=== PATIENT | male | born 1975 ===

== ENCOUNTER 2017-08-07 10:06 | Emergency (ER) | payer OTHER ==
[2017-08-07 10:24] VITALS: BP 112/74
--- NOTE | 2017-08-07 10:54 | UC ---
Respiratory Complaint HPI - HPI Summary HPI Summary: 42 Y/O male with C/O upper respiratory congestion, cough and R sided chest wall pain. States symptoms began two days ago. Denies fever, chills, dyspnea, nausea , vomiting, or diaphoresis. States pain in R lower chest improves with massage. No cardiac or respiratory medical history. medical history and medications reviewed at this visit. Discussed testing (EKG, CXR to rule out cardiac origin or pulmonary disease) Mr Richardson defers further testing at this time. Risk vs benefits discussed. - History of Current Complaint Chief Complaint: UCRespiratory Stated Complaint: URI Time Seen by Provider: 08/07/17 10:33 Hx Obtained From: Patient Onset/Duration: Gradual Onset Timing: Constant Severity Initially: Mild Severity Currently: Mild Pain Intensity: 4 Pain Scale Used: 0-10 Numeric Character: Cough: Productive Associated Signs And Symptoms: Positive: URI, Nasal Congestion - Risk Factors Pulmonary Embolism Risk Factors: Negative Cardiac Risk Factors: Negative Pseudomonas Risk Factors: Negative Tuberculosis Risk Factors: Negative - Allergies/Home Medications Allergies/Adverse Reactions: Allergies Allergy/AdvReac Type Severity Reaction Status Date / Time No Known Allergies Allergy Verified 08/07/17 10:24 Home Medications: Home Medications Pseudoephedrine HCl [Sudafed 12 Hour] 120 mg PO 08/07/17 [History] PMH/Surg Hx/FS Hx/Imm Hx Previously Healthy: Yes - Surgical History Surgical History: None - Social History Alcohol Use: Occasionally Substance Use Type: None Smoking Status (MU): Never Smoked Tobacco Review of Systems Constitutional: Negative Skin: Negative Eyes: Negative ENT: Negative Respiratory: Cough Cardiovascular: Chest Pain - R chest wall pain Gastrointestinal: Negative Genitourinary: Negative Motor: Negative Neurovascular: Negative Musculoskeletal: Negative Neurological: Negative Psychological: Negative Is Patient Immunocompromised?: No All Other Systems Reviewed And Are Negative: Yes Physical Exam Triage Information Reviewed: Yes Vital Signs: Initial Vital Signs Temp 98.0 F 08/07/17 10:19 Pulse 59 08/07/17 10:19 Resp 18 08/07/17 10:19 BP 112/74 08/07/17 10:19 Pulse Ox 100 08/07/17 10:19 Vital Signs Reviewed: Yes Respiratory Exam: Normal Respiratory: Positive: Lungs clear, Normal breath sounds Cardiovascular Exam: Normal Cardiovascular: Positive: RRR Abdominal Exam: Normal Abdomen Description: Positive: Nontender Bowel Sounds: Positive: Present Musculoskeletal Exam: Normal Neurological Exam: Normal Psychological Exam: Normal Skin Exam: Normal UC Diagnostic Evaluation - Laboratory O2 Sat by Pulse Oximetry: 100 Respiratory Course/Dx - Differential Dx/Diagnosis Differential Diagnosis/HQI/PQRI: Bronchitis, Lower Resp Infection, Sinusitis Provider Diagnoses: upper respiratory infection Discharge - Discharge Plan Condition: Stable Disposition: HOME Patient Education Materials: Viral Syndrome (ED) Referrals: No Primary Care Phys,NOPCP [Primary Care Provider] - Additional Instructions: You most likely have a viral illness with upper respiratory congestion. Mucinex can alleviate nasal congestion. Drink plenty of fluids and rest. You have been offered a CXR and EKG for C/O R chest wall pain. If you decide that you would like these tests done please return to Urgent care for reevaluation. For increased symptoms, chest pressure, sweating, or shortness of breath please seek medical attention.
== END 2017-08-07 11:20 | disposition home or self-care (01) ==
LOC: UCEAST 10:06
DX: J06.9 Acute upper respiratory infection, unspecified (principal)
CPT/HCPCS: 99211; G0463